=== PATIENT | female | born 1935 | race Caucasian/White ===

== ENCOUNTER 2018-01-03 05:41 | Outpatient (CLI) | payer MEDICARE, OTHER ==
[~2018-01-03] VITALS: Ht 157.5 cm; Wt 72.7 kg
[~2018-01-03 05:41] MED LIST: BENZ200C25 PO; D3/R1CAP PO; HYAL1CAP PO; HYDR-2890 PO; IRBE300T13 PO; IRBE300T9 PO; KCL20TCR PO; LTN005OP2 OU; NITR1PAT27 SL; OMEG-12 PO; OMEP20TA2 PO; ONDA4TAB8 PO; SENN1TAB76 PO; SIMV20TA3 PO; TELM1TAB2 PO; TELM1TAB3 PO; TML5OP2.5 OP; VIT1CAPS5 PO; WARF2.5T PO
[2018-01-03] MEDS ORDERED: SIMV20TA3 PO (13:57)
[2018-01-03] MEDS ORDERED: OMEP20CA12 PO (13:57)
[2018-01-03] MEDS ORDERED: TELM80TA5 PO (13:57)
[2018-01-03] MEDS ORDERED: SENN-140 PO (14:12)
[2018-01-03] MEDS ORDERED: LATA2.5D5 OP (14:12)
[2018-01-03] MEDS ORDERED: VIT1CAPS5 PO (14:12)
[2018-01-03] MEDS ORDERED: AMLO10TA2 PO (14:12)
[2018-01-03] MEDS ORDERED: OMEG-160 PO (14:12)
[2018-01-03] MEDS ORDERED: LABE100T2 PO (14:15)
== END 2018-01-03 14:22 ==
LOC: PREOP 05:41
PROVIDERS: ATTEND Orthopaedic Surgery
DX: Z01.818 Encounter for other preprocedural examination (principal); M65.341 Trigger finger, right ring finger; M72.0 Palmar fascial fibromatosis [Dupuytren]

== ENCOUNTER 2018-01-10 08:49 | Day surgery (SDC) | payer MEDICARE, OTHER ==
[~2018-01-10] VITALS: Ht 157.5 cm; Wt 72.7 kg
[~2018-01-10 08:49] MED LIST changes: +AMLO10TA2 PO; +LABE100T6 PO; +LATA2.5D5 OP; +OMEG-160 PO; +OMEP20CA12 PO; +SENN-140 PO; +TELM80TA5 PO
--- OUTSIDE RECORDS SUMMARY | 2018-01-10 08:53 | XMS REPORT | Continuity of Care Document ---
Author Author [facility] Organization [facility] Address Unknown Phone Unavailable Allergies Active Description Code Type Severity Reaction Onset Reported/Identified Relationship to Patient Clinical Status Yes Penicillins [id number] Drug Allergy Unknown N/A 01/03/2018 Yes Sulfa (Sulfonamide Antibiotics) [id number] Drug Allergy Unknown N/A 2017 Medications There is no data. 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 03/16/2011 Ot 535.40 OTH SPECIFIED GASTRITIS,W/O MENTION OF H 03/16/2011 Ot 553.3 DIAPHRAGMATIC HERNIA 11/15/2012 Ot 272.4 HYPERLIPIDEMIA NEC/NOS 11/15/2012 Ot 362.50 MACULAR DEGENERATION NOS 11/15/2012 Ot 401.9 HYPERTENSION NOS 11/15/2012 Ot 786.59 CHEST PAIN NEC 11/15/2012 Ot V17.3 FAM HX- ISCHEM HEART DIS 11/25/2012 Ot 459.89 CIRCULATORY DISEASE NEC 11/25/2012 Ot V45.89 POSTSURGICAL STATES NEC 02/14/2014 MARY CALLEJAS DO Ot 715.31 LOC OSTEOARTH NOS-SHLDER 02/14/2014 MARY CALLEJAS DO Ot 726.10 BURSAE TENDONS DIS SHLDER NOS 05/23/2014 MARY CALLEJAS DO Ot V43.61 SHOULDER JOINT REPLACEMENT STATUS 05/23/2014 MARY CALLEJAS DO Ot V54.81 AFTERCARE FOLLOWING JOINT REPLACEMENT 05/23/2014 MARY CALLEJAS DO Ot V57.1 PHYSICAL THERAPY NEC 07/29/2015 Ot 793.80 07/29/2015 Ot 611.89 07/29/2015 Ot V67.9 07/29/2015 Ot 789.01 07/29/2015 Ot 787.02 07/29/2015 Ot 789.06 07/29/2015 Ot V76.12 07/29/2015 Ot 786.2 07/29/2015 TRACIE WALTERS MD Ot V76.12 07/29/2015 BRITTA DO, MARY Barros Ot 715.31 07/29/2015 BRITTA DO, MARY Barros Ot V72.63 07/29/2015 BRITTA DO, MARY Barros Ot V72.81 07/29/2015 BRITTA DO, MARY Barros Ot V72.83 07/29/2015 BRITTA DO, MARY Barros Ot V72.84 07/29/2015 BRITTA DO, MARY Barros Ot V74.8 07/29/2015 BRITTA DO, MARY Barros Ot 276.8 07/29/2015 BRITTA DO, MARY Barros Ot V43.61 07/30/2015 BRITTA DO, MARY Barros Ot M25.512 07/30/2015 BRITTA DO, MARY Barros Ot Z98.89 08/19/2015 Ot 793.80 08/19/2015 Ot 611.89 08/19/2015 Ot V67.9 08/19/2015 Ot 789.01 08/19/2015 Ot 787.02 08/19/2015 Ot 789.06 08/19/2015 Ot V76.12 08/19/2015 Ot 786.2 08/19/2015 TRACIE WALTERS MD Ot V76.12 08/19/2015 BRITTA DO, MARY Barros Ot 715.31 08/19/2015 BRITTA DO, MARY Barros Ot V72.63 08/19/2015 BRITTA DO, MARY Barros Ot V72.81 08/19/2015 BRITTA DO, MARY Barros Ot V72.83 08/19/2015 BRITTA DO, MARY Barros Ot V72.84 08/19/2015 BRITTA DO, MARY Barros Ot V74.8 08/19/2015 BRITTA DO, MARY Barros Ot 276.8 08/19/2015 BRITTA DO, MARY Barros Ot V43.61 08/19/2015 BRITTA DO, MARY Barros Ot M25.512 08/19/2015 BRITTA DOMARY Ot Z98.89 08/19/2015 Ot 793.80 08/19/2015 Ot 611.89 08/19/2015 Ot V67.9 08/19/2015 Ot 789.01 08/19/2015 Ot 787.02 08/19/2015 Ot 789.06 08/19/2015 Ot V76.12 08/19/2015 Ot 786.2 08/19/2015 TRACIE WALTERS MD Ot V76.12 08/19/2015 BRITTA DO, MARY Barros Ot 715.31 08/19/2015 BRITTA DO, MARY Barros Ot V72.63 08/19/2015 BRITTA DO, MARY Barros Ot V72.81 08/19/2015 BRITTA DO, MARY Barros Ot V72.83 08/19/2015 BRITTA DO, MARY Barros Ot V72.84 08/19/2015 BRITTA DO, MARY Barros Ot V74.8 08/19/2015 BRITTA DO, MARY Barros Ot 276.8 08/19/2015 BRITTA DO, MARY Barros Ot V43.61 08/19/2015 BRITTA DO, MARY Barros Ot M25.512 08/19/2015 BRITTA DO, MARY Barros Ot Z98.89 08/25/2015 BRITTA DO, MARY Barros Ot M25.512 08/25/2015 BRITTA DO, MARY Barros Ot Z98.89 08/27/2015 BRITTA DO, MARY Barros Ot M25.512 08/27/2015 BRITTA DO, MARY Barros Ot Z98.89 09/16/2015 SELENA BOSTON, TRACIE Pittman Ot Z12.31 03/05/2016 Ot 611.89 OTHER SPECIFIED DISORDERS OF BREAST 03/05/2016 Ot V67.9 FOLLOW-UP EXAM NOS 03/05/2016 Ot 789.01 ABDOMINAL PAIN, RIGHT UPPER QUADRANT 03/05/2016 Ot 787.02 NAUSEA ALONE 03/05/2016 Ot 789.06 ABDOMINAL PAIN, EPIGASTRIC 03/05/2016 Ot V76.12 OTH SCREEN MAMMO-MALIGN NEOPLASM OF ERA 03/05/2016 Ot 786.2 COUGH 03/05/2016 TRACIE WALTERS MD Ot V76.12 OTH SCREEN MAMMO-MALIGN NEOPLASM OF ERA 03/05/2016 BRITTA DO, MARY Barros Ot 715.31 LOC OSTEOARTH NOS-SHLDER 03/05/2016 BRITTA , MARY Barros Ot V72.63 PRE-PROCEDURAL LABORATORY EXAMINATION 03/05/2016 BRITTA , MARY Barros Ot V72.81 [id number] CARDIOVASCULAR 03/05/2016 BRITTA DO, MARY Barros Ot V72.83 EXAM PRE-OPERATIVE NEC 03/05/2016 MARY CALLEJAS DO Ot V72.84 EXAM PRE-OPERATIVE NOS 03/05/2016 MARY CALLEJAS DO Ot V74.8 SCREEN-BACTERIAL DIS NEC 03/05/2016 MARY CALLEJAS DO Ot 276.8 HYPOPOTASSEMIA 03/05/2016 MARY CALLEJAS DO Ot V43.61 SHOULDER JOINT REPLACEMENT STATUS 03/05/2016 MARY CALLEJAS DO Ot M25.512 PAIN IN LEFT SHOULDER 03/05/2016 MARY CALLEJAS DO Ot Z98.89 OTHER SPECIFIED POSTPROCEDURAL STATES 03/05/2016 SELENA BOSTON, TRACIE Pittman Ot Z12.31 ENCNTR SCREEN MAMMOGRAM FOR MALIGNANT NE 03/05/2016 Ot 611.89 OTHER SPECIFIED DISORDERS OF BREAST 03/05/2016 Ot V67.9 FOLLOW-UP EXAM NOS 03/05/2016 Ot 789.01 ABDOMINAL PAIN, RIGHT UPPER QUADRANT 03/05/2016 Ot 787.02 NAUSEA ALONE 03/05/2016 Ot 789.06 ABDOMINAL PAIN, EPIGASTRIC 03/05/2016 Ot V76.12 OTH SCREEN MAMMO-MALIGN NEOPLASM OF ERA 03/05/2016 Ot 786.2 COUGH 03/05/2016 SELENA BOSTON, TRACIE Pittman Ot V76.12 OTH SCREEN MAMMO-MALIGN NEOPLASM OF ERA 03/05/2016 MARY CALLEJAS DO Ot 715.31 LOC OSTEOARTH NOS-SHLDER 03/05/2016 MARY CALLEJAS DO Ot V72.63 PRE-PROCEDURAL LABORATORY EXAMINATION 03/05/2016 MARY CALLEJAS DO Ot V72.81 QAFZ-[id number] CARDIOVASCULAR 03/05/2016 BRITTA CHANEL MARY Barros Ot V72.83 EXAM PRE-OPERATIVE NEC 03/05/2016 MARY CALLEJAS DO Ot V72.84 EXAM PRE-OPERATIVE NOS 03/05/2016 MARY CALLEJAS DO Ot V74.8 SCREEN-BACTERIAL DIS NEC 03/05/2016 MARY CALLEJAS DO Ot 276.8 HYPOPOTASSEMIA 03/05/2016 MARY CALLEJAS DO Ot V43.61 SHOULDER JOINT REPLACEMENT STATUS 03/05/2016 MARY CALLEJAS DO Ot M25.512 PAIN IN LEFT SHOULDER 03/05/2016 MARY CALLEJAS DO Ot Z98.89 OTHER SPECIFIED POSTPROCEDURAL STATES 03/05/2016 SELENA BOSTON, TRACIE Pittman Ot Z12.31 ENCNTR SCREEN MAMMOGRAM FOR MALIGNANT NE 03/05/2016 Ot 611.89 OTHER SPECIFIED DISORDERS OF BREAST 03/05/2016 Ot V67.9 FOLLOW-UP EXAM NOS 03/05/2016 Ot 789.01 ABDOMINAL PAIN, RIGHT UPPER QUADRANT 03/05/2016 Ot 787.02 NAUSEA ALONE 03/05/2016 Ot 789.06 ABDOMINAL PAIN, EPIGASTRIC 03/05/2016 Ot V76.12 OTH SCREEN MAMMO-MALIGN NEOPLASM OF ERA 03/05/2016 Ot 786.2 COUGH 03/05/2016 TRACIE WALTERS MD Ot V76.12 OTH SCREEN MAMMO-MALIGN NEOPLASM OF ERA 03/05/2016 BRITTA CHANEL MARY Barros Ot 715.31 LOC OSTEOARTH NOS-SHLDER 03/05/2016 BRITTA CHANEL MARY Barros Ot V72.63 PRE-PROCEDURAL LABORATORY EXAMINATION 03/05/2016 BRITTA CHANEL MARY Barros Ot V72.81 [id number] CARDIOVASCULAR 03/05/2016 BRITTA CHANEL MARY Barros Ot V72.83 EXAM PRE-OPERATIVE NEC 03/05/2016 BRITTA CHANEL MARY Barros Ot V72.84 EXAM PRE-OPERATIVE NOS 03/05/2016 BRITTA CHANEL MARY Barros Ot V74.8 SCREEN-BACTERIAL DIS NEC 03/05/2016 BRITTA CHANEL MARY Barros Ot 276.8 HYPOPOTASSEMIA 03/05/2016 BRITTA CHANEL MARY Barros Ot V43.61 SHOULDER JOINT REPLACEMENT STATUS 03/05/2016 BRITTA CHANEL MARY Barros Ot M25.512 PAIN IN LEFT SHOULDER 03/05/2016 BRITTA CHANEL MARY Barros Ot Z98.89 OTHER SPECIFIED POSTPROCEDURAL STATES 03/05/2016 SELENA BOSTON, TRACIE Pittman Ot Z12.31 ENCNTR SCREEN MAMMOGRAM FOR MALIGNANT NE 03/05/2016 ABHINAV OROPEZA Ot 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 03/08/2016 ABHINAV OROPEZA Ot 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 03/25/2016 ABHINAV OROPEZA Ot E78.2 MIXED HYPERLIPIDEMIA 03/25/2016 ABHINAV OROPEZA Ot I10 ESSENTIAL (PRIMARY) HYPERTENSION 03/25/2016 ABHINAV OROPEZA Ot 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 03/25/2016 ABHINAV OROPEZA Ot R06.02 SHORTNESS OF BREATH 04/09/2016 ABHINAV OROPEZA Ot E78.2 MIXED HYPERLIPIDEMIA 04/09/2016 ABHINAV OROPEZA Ot I10 ESSENTIAL (PRIMARY) HYPERTENSION 04/09/2016 ABHINAV OROPEZA Ot 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 04/09/2016 ABHINAV OROPEZA Ot R06.02 SHORTNESS OF BREATH 08/31/2016 Ot 787.02 NAUSEA ALONE 08/31/2016 Ot 789.06 ABDOMINAL PAIN, EPIGASTRIC 08/31/2016 Ot V76.12 OTH SCREEN MAMMO-MALIGN NEOPLASM OF ERA 08/31/2016 Ot 786.2 COUGH 08/31/2016 SELENA BOSTON, TRACIE Pittman Ot V76.12 OTH SCREEN MAMMO-MALIGN NEOPLASM OF ERA 08/31/2016 MARY CALLEJAS DO Ot 715.31 LOC OSTEOARTH NOS-SHLDER 08/31/2016 MARY CALLEJAS DO Ot V72.63 PRE-PROCEDURAL LABORATORY EXAMINATION 08/31/2016 MARY CALLEJAS DO Ot V72.81 [id number] CARDIOVASCULAR 08/31/2016 MARY CALLEJAS DO Ot V72.83 EXAM PRE-OPERATIVE NEC 08/31/2016 MARY CALLEJAS DO Ot V72.84 EXAM PRE-OPERATIVE NOS 08/31/2016 MARY CALLEJAS DO Ot V74.8 SCREEN-BACTERIAL DIS NEC 08/31/2016 MARY CALLEJAS DO Ot 276.8 HYPOPOTASSEMIA 08/31/2016 MARY CALLEJAS DO Ot V43.61 SHOULDER JOINT REPLACEMENT STATUS 08/31/2016 MARY CALLEJAS DO Ot M25.512 PAIN IN LEFT SHOULDER 08/31/2016 MARY CALLEJAS DO Ot Z98.89 OTHER SPECIFIED POSTPROCEDURAL STATES 08/31/2016 TRACIE WALTERS MD Ot Z12.31 ENCNTR SCREEN MAMMOGRAM FOR MALIGNANT NE 08/31/2016 ABHINAV OROPEZA Ot E78.2 MIXED HYPERLIPIDEMIA 08/31/2016 ABHINAV OROPEZA Ot I10 ESSENTIAL (PRIMARY) HYPERTENSION 08/31/2016 ABHINAV OROPEZA Ot 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 08/31/2016 ABHINAV OROPEZA Ot R06.02 SHORTNESS OF BREATH 08/31/2016 SELENA BOSTON, TRACIE Pittman Ot Z12.31 ENCNTR SCREEN MAMMOGRAM FOR MALIGNANT NE 08/31/2016 TRACIE WALTERS MD, Ot Z12.31 ENCNTR SCREEN MAMMOGRAM FOR MALIGNANT NE 08/31/2016 TRACIE WALTERS MD Ot Z12.31 ENCNTR SCREEN MAMMOGRAM FOR MALIGNANT NE 09/01/2016 TRACIE WALTERS MD, Ot Z12.31 ENCNTR SCREEN MAMMOGRAM FOR MALIGNANT NE 09/01/2016 TRACIE WALTERS MD, Ot Z12.31 ENCNTR SCREEN MAMMOGRAM FOR MALIGNANT NE 09/23/2016 TRACIE WALTERS MD, Ot Z12.31 ENCNTR SCREEN MAMMOGRAM FOR MALIGNANT NE 01/03/2018 TRACIE WALTERS MD Ot V76.12 OTH SCREEN MAMMO-MALIGN NEOPLASM OF ERA 01/03/2018 BRITTA CHANEL MARY Fiorella Ot 715.31 LOC OSTEOARTH NOS-SHLDER 01/03/2018 BRITTA CHANEL MARY Barros Ot V72.63 PRE-PROCEDURAL LABORATORY EXAMINATION 01/03/2018 BRITTA CHANEL MARY Barros Ot V72.81 [id number] CARDIOVASCULAR 01/03/2018 BRITTA DO MARY Fiorella Ot V72.83 EXAM PRE-OPERATIVE NEC 01/03/2018 BRITTA CHANEL MARY Fiorella Ot V72.84 EXAM PRE-OPERATIVE NOS 01/03/2018 BRITTA CHANEL MARY Fiorella Ot V74.8 SCREEN-BACTERIAL DIS NEC 01/03/2018 BRITTA DO MARY Barros Ot 276.8 HYPOPOTASSEMIA 01/03/2018 BRITTA CHANEL MARY Barros Ot V43.61 SHOULDER JOINT REPLACEMENT STATUS 01/03/2018 BRITTA CHANEL MARY Fiorella Ot M25.512 PAIN IN LEFT SHOULDER 01/03/2018 BRITTA CHANEL MARY Fiorella Ot Z98.89 OTHER SPECIFIED POSTPROCEDURAL STATES 01/03/2018 TRACIE WALTERS MD Ot Z12.31 ENCNTR SCREEN MAMMOGRAM FOR MALIGNANT NE 01/03/2018 ABHINAV OROPEZA Ot E78.2 MIXED HYPERLIPIDEMIA 01/03/2018 ABHINAV OROPEZA Ot I10 ESSENTIAL (PRIMARY) HYPERTENSION 01/03/2018 ABHINAV OROPEZA Ot 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 01/03/2018 ABHINAV OROPEZA Ot R06.02 SHORTNESS OF BREATH 01/03/2018 SELENA BOSTON, TRACIE Pittman Ot Z12.31 ENCNTR SCREEN MAMMOGRAM FOR MALIGNANT NE 01/04/2018 TRACIE WALTERS MD Ot V76.12 OTH SCREEN MAMMO-MALIGN NEOPLASM OF ERA 01/04/2018 BRITTA DO, MARY Fiorella Ot 715.31 LOC OSTEOARTH NOS-SHLDER 01/04/2018 BRITTA DO MARY Barros Ot V72.63 PRE-PROCEDURAL LABORATORY EXAMINATION 01/04/2018 BRITTA CHANEL MARY Barros Ot V72.81 WINA-[id number] CARDIOVASCULAR 01/04/2018 BRITTA DO MARY Barros Ot V72.83 EXAM PRE-OPERATIVE NEC 01/04/2018 BRITTA DO MARY Barros Ot V72.84 EXAM PRE-OPERATIVE NOS 01/04/2018 BRITTA DO MARY Fiorella Ot V74.8 SCREEN-BACTERIAL DIS NEC 01/04/2018 BRITTA DO, MARY Fiorella Ot 276.8 HYPOPOTASSEMIA 01/04/2018 BRITTA DO MARY Fiorella Ot V43.61 SHOULDER JOINT REPLACEMENT STATUS 01/04/2018 BRITTA CHANEL MARY Fiorella Ot M25.512 PAIN IN LEFT SHOULDER 01/04/2018 BRITTA MARY Fiorella Ot Z98.89 OTHER SPECIFIED POSTPROCEDURAL STATES 01/04/2018 TRACIE WALTERS MD, Ot Z12.31 ENCNTR SCREEN MAMMOGRAM FOR MALIGNANT NE 01/04/2018 ABHINAV OROPEZA Ot E78.2 MIXED HYPERLIPIDEMIA 01/04/2018 ABHINAV OROPEZA Ot I10 ESSENTIAL (PRIMARY) HYPERTENSION 01/04/2018 ABHINAV OROPEZA Ot 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 01/04/2018 ABHINAV OROPEZA Ot R06.02 SHORTNESS OF BREATH 01/04/2018 TRACIE WALTERS MD Ot Z12.31 ENCNTR SCREEN MAMMOGRAM FOR MALIGNANT NE 01/04/2018 BRITTA DO MARY F Ot M65.341 TRIGGER FINGER, RIGHT RING FINGER 01/04/2018 BRITTA CHANELMARY Fiorella Ot 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 Encounters ACCT No. Visit Date/Time Discharge Status Pt. Type Provider Facility Loc./Unit Complaint [id number] 01/03/2018 05:41:00 01/03/2018 14:22:00 DIS Outpatient MARY CALLEJAS DO [facility] PREOP TRIGGER FINGER RT RING, RT HAND DUPYTRENS CONTRACT [id number] 08/31/2016 09:15:00 08/31/2016 23:59:59 CLS Outpatient TRACIE WALTERS MD [facility] RAD SCREENING [id number] 03/05/2016 07:41:00 03/05/2016 23:59:59 CLS Outpatient ABHINAV OROPEZA [facility] CARD CAD,DYSPNEA, HTN [id number] 08/19/2015 11:20:00 08/19/2015 23:59:59 CLS Outpatient TRACIE WALTERS MD [facility] RAD SCREENING [id number] 07/28/2015 13:22:00 07/28/2015 23:59:59 CLS Outpatient MARY CALLEJAS DO [facility] RAD STATUS POST REVERSE SHOULDER, INCREASED PAIN [id number] 05/23/2014 09:44:00 05/23/2014 13:30:00 DIS Outpatient MARY CALLEJAS DO [facility] REHAB LT REVERSE TOTAL SHOULDER [id number] 02/20/2014 12:21:00 02/20/2014 23:59:59 CLS Outpatient MARY CALLEJAS DO [facility] LAB S/P TOTAL [id number] 02/12/2014 05:43:00 02/14/2014 15:20:00 DIS Inpatient MARY CALLEJAS DO [facility] SURGICAL DJD LEFT SHOULDER [id number] 01/29/2014 08:47:00 01/29/2014 23:59:59 CLS Outpatient MARY CALLEJAS DO [facility] PREOP LEFT SHOULDER DJD [id number] 06/13/2013 10:07:00 06/13/2013 23:59:59 CLS Outpatient TRACIE WALTERS MD [facility] RAD SCREENING [id number] 01/10/2018 11:00:00 PEN Preadmit MARY CALLEJAS DO [facility] SDC TRIGGER FINGER RT HAND, RT DUPYTRENS CONTRACTURE [id number] 11/25/2012 12:48:00 Document Registration [id number] 11/14/2012 12:00:00 Document Registration [id number] 05/01/2012 11:52:00 Document Registration [id number] 01/31/2012 08:55:00 Document Registration [id number] 03/18/2011 11:30:00 Document Registration [id number] 03/16/2011 07:30:00 Document Registration [id number] 03/09/2011 07:38:00 Document Registration [id number] 01/20/2011 08:26:00 Document Registration [id number] 06/30/2010 07:27:00 Document Registration [id number] 04/20/2010 12:25:00 Document Registration
[2018-01-10] MEDS ORDERED: LACTATED RINGERS 1,000 ML IV PRN (09:06)
[2018-01-10] MEDS ORDERED: FAMOTIDINE 20MG/2ML IV (PEPCID) IV ONE (09:15)
[2018-01-10 09:30] VITALS: BP 118/69
[2018-01-10] MEDS ORDERED: NEO/POLY/BAC (NEOSPORIN) OINT 15 GM TUBE ONE (09:59)
[2018-01-10] MEDS ORDERED: GENTAMICIN 40 MG/ML 2 ML INJ SDV ONE (09:59)
[2018-01-10] MEDS ORDERED: LIDOCAINE 1% INJ 20 ML 20 ML VIAL ONE (09:59)
[2018-01-10] MEDS ORDERED: LIDOCAINE PF 2% 5 ML (XYLOCAINE) VIAL ONE (10:02)
[2018-01-10] MEDS ORDERED: ONDANSETRON 4 MG/2 ML (SDV) Z0FRAN ONE ×2 (10:02→10:12)
[2018-01-10] MEDS ORDERED: proPOfol 200 MG/20 ML (DIPRIVAN) VIAL IV ONE (10:02)
--- NOTE | 2018-01-10 10:11 | Progress Note-Pre Operative ---
Pre-Operative Progress Note H&P Reviewed The H&P was reviewed, patient examined and no changes noted. Date Seen by Provider: Jan 10, 2018 Time Seen by Provider: 10:00 Date H&P Reviewed: Jan 10, 2018 Time H&P Reviewed: 10:00 Pre-Operative Diagnosis: Dupuytrens contracture right hand, trigger finger right ring finger MARY CALLEJAS DO Jan 10, 2018 10:10 am
[2018-01-10] MEDS ORDERED: TRAM50TA2 PO (10:24)
--- NOTE | 2018-01-10 10:27 | Discharge Inst-Surgical ---
Discharge Inst-Surgical Depart Medication/Instructions New, Converted or Re-Newed RX: RX on Chart Patient Instructions may remove dressing tomorrow and cover incision with bandaid, may gently wash with soap and water, do not submerse. frequent ROM of hand and fingers, no lifting over 2 lbs. may ice 20 minutes every hour for 2 days then ice 3x/day Consults/Follow Up Goal/Follow Up Appt.: f/u 8 days Patient Instructions: No driving on pain meds Activity Activity as Tolerated: No Elevate Extremity: Elevate Above Heart Diet Discharge Diet: No Restrictions Return to The Hospital For: concerns. Call Dr. Callejas's office 1st if possible Symptoms to Report to Physicia: Extremity Discoloration, Fever Over 101 Degrees F MARY CALLEJAS DO Jan 10, 2018 10:27 am
[2018-01-10] MEDS ORDERED: PROPOFOL INJECTION 50 ML IV ONE (10:35)
--- NOTE | 2018-01-10 11:07 | Progress Note-Post Operative ---
Post-Operative Progess Note Surgeon (s)/Target Worker (s) Surgeon MARY CALLEJAS DO Target Worker: Jim Mahoney EDGING CATCHERLinda Pre-Operative Diagnosis Dupuytrens contracture right hand, trigger finger right ring finger Post-Operative Diagnosis same Procedure & Operative Findings Date of Procedure 01/10/18 Procedure Performed/Findings Partial palmar fasciectomy right hand A1 stephanie release right middle finger Anesthesia Type Monitired local Estimated Blood Loss Estimated blood loss (mL): min Specimens/Packing Specimens Removed diseased palmar fascia sent for eval MARY CALLEJAS DO Jan 10, 2018 11:07 am
[2018-01-10] MEDS ORDERED: ONDANSETRON 4 MG/2 ML (SDV) Z0FRAN IVP PRN (11:30)
[2018-01-10 11:45] VITALS: BP 123/55
[2018-01-10 12:15] VITALS: BP 129/51
[2018-01-10 12:50] VITALS: BP 129/51
--- NOTE | 2018-01-10 13:39 | Anesthesia-General Post-Op ---
MAC Patient Condition Mental Status/LOC: Same as Preop Cardiovascular: Satisfactory Nausea/Vomiting: Absent Respiratory: Satisfactory Pain: Controlled Complications: Absent Post Op Complications Complications None Follow Up Care/Instructions Patient Instructions None needed. Anesthesiology Discharge Order Discharge Order Patient was seen after surgery and prior to her discharge to home and she was doing well, no complaints, stable vital signs, no apparent adverse anesthesia problems. RONNI ZIGELER DO Jan 10, 2018 13:39
--- NOTE | 2018-01-11 00:35 | OPERATIVE REPORT ---
DATE OF SERVICE: 01/10/2018 PREOPERATIVE DIAGNOSES: 1. Dupuytren's contracture, right hand. 2. Trigger finger, right ring finger. POSTOPERATIVE DIAGNOSES: 1. Dupuytren's contracture, right hand. 2. Trigger finger, right ring finger. PROCEDURES: 1. Partial palmar fasciectomy, right hand. 2. A1 stephanie release, right ring finger. SURGEON: Tanmay Callejas MD ACCOUNT INSTALLER: GUILLERMO Sow ANESTHESIA: Monitored local. INDICATIONS AND FINDINGS: The patient is an 82-year-old female seen with chief complaint of persistent catching and locking of the right ring finger. The patient had a prominent palpable Dupuytren's cord over the volar surface of the ring finger and into the palmar aspect of the hand. The patient was taken to surgery where the diseased palmar fascia was excised and A1 stephanie release was performed without complication. PROCEDURE IN DETAIL: The patient was taken to the operating room and placed supine upon the operating table and IV sedation was provided. A well-padded pneumatic tourniquet was placed about the upper aspect of the right arm. A ChloraPrep and sterile drape of the right upper extremity was performed. The proposed incision site was then infiltrated with 1% lidocaine without epinephrine. The arm was elevated, exsanguinated and the tourniquet inflated to 250 mmHg pressure. A zigzag incision was then made over the volar surface of the palmar surface of the right hand overlying the distal palmar crease and then palmar aspect and proximal to this. Under loupe magnification visualization, flaps were developed. The skin and subcutaneous tissues were sharply excised from a pretendinous cord that was present in the palmar surface of the hand. This was dissected to the proximal aspect of the hand, I then excised. This excision was carried down to the area of the proximal phalangeal area. The neurovascular bundles were protected throughout the field. The A1 stephanie was identified and this was divided longitudinally under direct visualization. The finger was flexed and extended with no further tethering in the finger after additional hypertrophic synovium was excised from the flexor tendon sheath of the ring finger. Wound was irrigated extensively with normal saline solution. The tourniquet was released. Hemostasis was maintained at the skin edges with electrocautery. The vascular bundles were noted to with no active bleeding. A 4-0 nylon was used to perform Allgower corner sutures and the remainder of the incision were closed simply with interrupted 4-0 nylon suture and Adaptic Neosporin bulky dressing was placed about the right hand with an ulnar gutter splint incorporated within the dressing. The patient was awake and was transferred to postoperative recovery with anesthesia personnel present in satisfactory condition. Job ID: [id number] DocumentID: [id number] Dictated Date: 01/10/2018 23:57:59 Silver Lap Machine Tender Date: 01/11/2018 00:34:59 Dictated By: TANMAY CALLEJAS DO
== END 2018-01-10 12:50 | disposition home or self-care (01) ==
LOC: SDC 08:49
PROVIDERS: ATTEND Orthopaedic Surgery
DX: M72.0 Palmar fascial fibromatosis [Dupuytren] (principal); M65.341 Trigger finger, right ring finger; I10 Essential (primary) hypertension; E78.00 Pure hypercholesterolemia, unspecified; K21.9 Gastro-esophageal reflux disease without esophagitis; Z79.899 Other long term (current) drug therapy
CPT/HCPCS: 87081; 88304

== ENCOUNTER 2018-04-13 08:29 | Outpatient (RCR) | payer MEDICARE, OTHER ==
[~2018-04-13 08:29] MED LIST changes: +TRAM50TA2 PO
== END 2018-04-13 09:18 | disposition home or self-care (01) ==
PROVIDERS: ATTEND Nurse Practitioner Family
DX: M51.36 Other intervertebral disc degeneration, lumbar region (principal); M48.061 Spinal stenosis, lumbar region without neurogenic claudication; M75.101 Unspecified rotator cuff tear or rupture of right shoulder, not specified as traumatic

== ENCOUNTER → 2019-02-01 | Outpatient (CLI) | payer MEDICARE, OTHER ==
[~2019-02-01] MED LIST changes: -AMLO10TA2 PO; +AMLO10TA7 PO; -SENN-140 PO; +SENN-141 PO; -TELM80TA5 PO; +TELM80TA8 PO
== END ==
LOC: CARD 10:03
PROVIDERS: ATTEND Internal Medicine Cardiovascular Disease
DX: I25.10 Atherosclerotic heart disease of native coronary artery without angina pectoris (principal); R07.9 Chest pain, unspecified; R06.09 Other forms of dyspnea; E78.5 Hyperlipidemia, unspecified
CPT/HCPCS: 93306

== ENCOUNTER → 2019-05-24 | Outpatient (CLI) | payer MEDICARE, OTHER ==
[~2019-05-24] MED LIST changes: -OMEP20CA12 PO; +OMEP20CA13 PO
--- NOTE | 2019-05-25 20:26 | Diagnostic Imaging Report ---
EXAMINATION: Digital mammogram bilateral screening. The current study was also evaluated with a Computer Aided Detection (CAD) system. 3-D tomosynthesis was also performed and reviewed. INDICATION: Screening. This study was compared to the prior exams of 01/24/2018, 08/31/2016, and 10/19/2014. At this time, there are no current complaints. FINDINGS: This exam was ordered as a screening mammogram; however, during the course of the study, the patient related that she had a lump in the far upper-outer aspect of the left breast. A marker was placed over the area of concern. In this region, there is a well-circumscribed 7 mm dense nodule. This finding is more prominent than noted on the previous exam of 01/24/2018. I suspect that this is a lymph node or perhaps a sebaceous cyst. Even so, I would recommend that ultrasound be performed to better evaluate this finding. The overall appearance of the breasts has not changed significantly otherwise. The fibroglandular tissue in both breasts is heterogeneously dense. This does limit the sensitivity of this exam. There is no primary or secondary sign of malignancy noted. IMPRESSION: Ultrasound will be recommended for further evaluation of the benign-appearing nodular density in the far upper-outer aspect of the left breast. ACR BI-RADS Category 0: Incomplete. (Needs additional imaging evaluation). Result letter will be mailed to the patient. Note: At least 10% of breast cancer is not imaged by mammography. Dictated by: Dictated on workstation # [id number]
== END ==
LOC: RAD 11:26
PROVIDERS: ATTEND Internal Medicine
DX: Z12.31 Encounter for screening mammogram for malignant neoplasm of breast (principal)
CPT/HCPCS: 77067

== ENCOUNTER 2019-06-06 05:46 | Outpatient (CLI) | payer MEDICARE, OTHER ==
[~2019-06-06] VITALS: Ht 157.5 cm; Wt 77.1 kg
[2019-06-06] MEDS ORDERED: LABE200T7 PO (11:16)
== END 2019-06-06 11:19 | disposition home or self-care (01) ==
LOC: PREOP 05:46
PROVIDERS: ATTEND Internal Medicine
DX: Z01.818 Encounter for other preprocedural examination (principal)

== ENCOUNTER 2019-06-08 07:46 | Day surgery (SDC) | payer MEDICARE, OTHER ==
--- NOTE | 2019-06-01 18:58 | HISTORY AND PHYSICAL ---
DATE OF SERVICE: EGD History and Physical HISTORY OF PRESENT ILLNESS: The patient is an 84-year-old white female, who reported a several week history of intermittent dysphagia to solids. She had noted several black stools as well. She denied abdominal pain and had no past history of peptic ulcer disease. She had an unremarkable colonoscopy in 2009 and had not recommended further screening procedures. She had no weight loss. PHYSICAL EXAMINATION: GENERAL: Revealed a white female, who did not appear to be in acute distress. She had no evidence for pallor. VITAL SIGNS: Blood pressure 120/74. CHEST: Clear. CARDIOVASCULAR: Regular rate and rhythm without murmur, S3 or S4. ABDOMEN: Soft, supple without mass, organomegaly or tenderness. EXTREMITIES: Reveal no cyanosis, clubbing or edema. Following that visit, stool for IFOB was obtained and was positive. ASSESSMENT: For evaluation of occult positive blood in the stool, possible melena and dysphagia, she is being set up for an EGD evaluation on 06/08/2019. She is to avoid nonsteroidal and anti-inflammatory medications. An earlier date was offered, but she wished to put it off until the . At the time of the procedure while in the hospital, we will likely obtain a CBC. If she is feeling weak with further melena, she is to go to the emergency room for more urgent evaluation. Job ID: [id number] DocumentID: [id number] Dictated Date: 05/30/2019 15:55:30 Market Basket Maker Date: 05/30/2019 16:08:58 Dictated By: TRACIE WALTERS MD
[2019-06-08] VITALS (13 sets, daily range): BP systolic 109–174; BP diastolic 57–92
[~2019-06-08] VITALS: Ht 157.5 cm; Wt 77.1 kg
[~2019-06-08 07:46] MED LIST changes: +LABE200T7 PO
[2019-06-08] MEDS ORDERED: D5 LR IV SOLUTION 1,000 ML IV STA (07:55)
[2019-06-08] MEDS ORDERED: HURRICAINE EXT TUBE (BENZOCAINE) XX PRN (08:00)
[2019-06-08] MEDS ORDERED: LIDOCAINE JELLY 2% 6 ML SYRINGE MM PRN (08:00)
[2019-06-08] MEDS ORDERED: fentaNYL INJECTION 100 MCG/2 ML AMP IVP ONE (08:00)
[2019-06-08] MEDS ORDERED: MIDAZOLAM 2 MG/2 ML (VERSED) VIAL IVP ONE (08:00)
[2019-06-08] MEDS ORDERED: fentaNYL INJECTION 100 MCG/2 ML AMP ONE (08:34)
[2019-06-08] MEDS ORDERED: MIDAZOLAM 2 MG/2 ML (VERSED) VIAL ONE ×2 (08:34→08:55)
[2019-06-08] MEDS ORDERED: HURRICAINE EXT TUBE (BENZOCAINE) ONE (08:35)
[2019-06-08] MEDS ORDERED: LIDOCAINE JELLY 2% 6 ML SYRINGE ONE (08:35)
[2019-06-08 11:05] LABS: BASOPHILS # (AUTO) 0.1 10^3/uL (0.0-0.1); BASOPHILS % (AUTO) 1 % (0-10); EOSINOPHILS # (AUTO) 0.2 10^3/uL (0.0-0.3); EOSINOPHILS % (AUTO) 2 % (0-10); HEMATOCRIT 42 % (35-52); HEMOGLOBIN 13.9 G/DL (11.5-16.0); LYMPHOCYTES # (AUTO) 2.6 X 10^3 (1.0-4.0); LYMPHOCYTES % (AUTO) 30 % (12-44); MEAN CORPUSCULAR HEMOGLOBIN 30 PG (25-34); MEAN CORPUSCULAR HGB CONC 33 G/DL (32-36); MEAN CORPUSCULAR VOLUME 91 FL (80-99); MONOCYTES # (AUTO) 1.1 X 10^3 (0.0-1.0); MONOCYTES % (AUTO) 13 % (0-12); NEUTROPHILS # (AUTO) 4.8 X 10^3 (1.8-7.8); NEUTROPHILS % (AUTO) 55 % (42-75); PLATELET COUNT 198 10^3/uL (130-400); RED CELL DISTRIBUTION WIDTH 14.2 % (10.0-14.5); WHITE BLOOD COUNT 8.8 10^3/uL (4.3-11.0)
--- NOTE | 2019-06-08 19:56 | OPERATIVE REPORT ---
DATE OF SERVICE: 06/08/2019 EGD SUMMARY PRIMARY CARE PROVIDER: Tracie Walters MD INDICATION FOR THE PROCEDURE: Occult positive blood in the stool with history of melena. DESCRIPTION OF PROCEDURE: The patient was placed in the left lateral decubitus position. The endoscope was inserted in the oral cavity and under direct visualization, esophagus was intubated. The endoscope was passed down the esophagus through the stomach and the second portion of the duodenum. A careful inspection was made as the endoscope was withdrawn. The patient tolerated the procedure well. FINDINGS: The proximal and mid esophagus were unremarkable. The patient is of short stature. The GE junction revealed some mild erythema without evidence for erosive esophagitis. There was evidence for a small sliding hiatal hernia. The Z-line was noted at 32 cm from the incisoral orifice. There was one small erosion noted on a fundal fold. There was no evidence for ulceration. No blood was noted in the upper GI tract. A biopsy was obtained and submitted for histopathology. Some patchy areas of erythema were noted in the antrum of the stomach. A biopsy was obtained and submitted for Helicobacter. No evidence for ulceration was noted. The pylorus, pyloric channel, the duodenal bulb and second portion of the duodenum were unremarkable. ASSESSMENT: 1. Moderate size hiatal hernia is present without evidence for erosive esophagitis. 2. One focal erosion was noted on the antral fold, biopsy pending. No evidence for ulceration. No blood noted in the upper GI tract. Patchy erythema was noted in the antrum of the stomach. Biopsies are pending for histopathology and Helicobacter evaluation. I advised the patient continue proton pump inhibitor therapy and avoiding aspirin and nonsteroidal medication. Job ID: [id number] DocumentID: [id number] Dictated Date: 06/08/2019 11:00:17 Suction Plate Roller Hand Date: 06/08/2019 19:56:13 Dictated By: TRACIE WALTERS MD
--- NOTE | 2019-06-09 03:00 | OPERATIVE REPORT ---
DATE OF SERVICE: ADDENDUM EGD Following the procedure, the patient states that over at least the past several months, she has noted increased dyspnea on exertion, especially activities like sweeping where she is using her arms and her legs. She denies chest pain and denies orthopnea, PND or pedal edema. She has had no diaphoresis and denies arm or back discomfort with activity. She does have a history of hypertension. She has no known history of coronary artery disease. PHYSICAL EXAMINATION: VITAL SIGNS: Her O2 saturations were normal prior to oxygen in the mid upper 90[address] after sedation with Versed and 2 liters with no arrhythmias being noted and stable vital signs. NECK: Revealed no JVD, adenopathy or bruits. CHEST: Clear to auscultation. CV: Revealed a regular rate and rhythm without murmur, S3 or S4. EXTREMITIES: Reveal no cyanosis, clubbing or edema. ASSESSMENT AND PLAN: Dyspnea on exertion. Considering that she has had some melena, we did obtain a CBC pending at the time of this dictation, make sure that the anemia is not contributing. She is told to call the office and come in next week and we will do a walking oxygen saturation test if there is no evidence for significant anemia with further evaluation for dyspnea on exertion. Job ID: [id number] DocumentID: [id number] Dictated Date: 06/08/2019 16:40:10 Clinical Data Abstractor Date: 06/09/2019 02:59:52 Dictated By: TRACIE WALTERS MD
== END 2019-06-08 11:00 | disposition home or self-care (01) ==
LOC: ENDO 07:46
PROVIDERS: ATTEND Internal Medicine
DX: K92.1 Melena (principal); K44.9 Diaphragmatic hernia without obstruction or gangrene
CPT/HCPCS: 36415; 85025; 88305

== ENCOUNTER → 2019-06-11 | Outpatient (CLI) | payer MEDICARE, OTHER ==
--- NOTE | 2019-06-11 09:38 | Diagnostic Imaging Report ---
INDICATION: Abnormal mammogram and palpable lump in the upper-outer left breast. This study is performed for further evaluation. COMPARISON: Correlation is made with the screening mammogram from 05/24/2019. FINDINGS: Sonographic interrogation of the upper outer left breast at the area of palpable abnormality was performed. This corresponds to the 2 o'clock location approximately 16 cm from the nipple. There is a hypoechoic circumscribed mass just below the skin surface measuring 0.7 x 0.7 x 0.7 cm. This demonstrate posterior acoustic enhancement. No internal vascularity is seen. IMPRESSION: Probable sebaceous cyst at the 2 o'clock location of the left breast 16 cm from the nipple corresponding with the mammographic and palpable abnormality. The patient may return to routine annual screening mammography. ACR BI-RADS Category 2: Benign findings. Dictated by: Dictated on workstation # [id number]
== END ==
LOC: RAD 09:01
PROVIDERS: ATTEND Internal Medicine
DX: N63.21 Unspecified lump in the left breast, upper outer quadrant (principal); R92.8 Other abnormal and inconclusive findings on diagnostic imaging of breast
CPT/HCPCS: 76642

== ENCOUNTER → 2019-07-11 | Outpatient (CLI) | payer MEDICARE, OTHER ==
[~2019-07-11] MED LIST changes: +RT-ALBUTEROL SULF 2.5 MG/3 ML PRE-MIX VIAL INH ONE
== END ==
LOC: RT 08:04
PROVIDERS: ATTEND Internal Medicine
DX: R06.09 Other forms of dyspnea (principal)
CPT/HCPCS: 94060; 94726; 94729

== ENCOUNTER 2021-06-24 05:37 | Outpatient (CLI) | payer MEDICARE, OTHER ==
[~2021-06-24] VITALS: Ht 157.5 cm; Wt 75.0 kg
[~2021-06-24 05:37] MED LIST changes: +AMLO-251 PO; -AMLO10TA7 PO; -OMEP20CA13 PO; +OMEP20CA18 PO; -RT-ALBUTEROL SULF 2.5 MG/3 ML PRE-MIX VIAL INH ONE; -SENN-141 PO; +SENN-234 PO; +SIMV20TA26 PO; -TRAM50TA2 PO; +TRM50T PO
[2021-06-24] MEDS ORDERED: CYAN1TAB68 PO (13:49)
== END 2021-06-24 14:01 ==
LOC: PREOP 05:37
PROVIDERS: ATTEND Surgery
DX: Z01.818 Encounter for other preprocedural examination (principal)

== ENCOUNTER 2021-07-01 08:07 | Day surgery (SDC) | payer MEDICARE, OTHER ==
[~2021-07-01] VITALS: Ht 157.5 cm; Wt 75.0 kg
[~2021-07-01 08:07] MED LIST changes: +CYAN1TAB68 PO
[2021-07-01 08:15] VITALS: BP 132/66
[2021-07-01] MEDS ORDERED: CLINDAMYCIN 600 MG/50 ML IVPB 50 ML IV ONE ×2 (08:25→08:30)
[2021-07-01] MEDS ORDERED: FAMOTIDINE 20MG/2ML IV (PEPCID) IV ONE (08:30)
[2021-07-01] MEDS ORDERED: ONDANSETRON 4 MG/2 ML (SDV) Z0FRAN IV ONE (08:30)
[2021-07-01] MEDS ORDERED: LACTATED RINGERS 1,000 ML IV PRN (08:30)
--- NOTE | 2021-07-01 10:20 | Progress Note-Pre Operative ---
Pre-Operative Progress Note H&P Reviewed The H&P was reviewed, patient examined and no changes noted. Time Seen by Provider: 09:21 Date H&P Reviewed: Jul 01, 2021 Time H&P Reviewed: 09:21 Pre-Operative Diagnosis: Left leg mass, site marked ISA VIVAR DO Jul 01, 2021 10:20
[2021-07-01] MEDS ORDERED: LIDOCAINE/EPI 1%-1:100,000 (XYLOCAINE) 20ML ONE (10:24)
[2021-07-01] MEDS ORDERED: PROPOFOL INJECTION 50 ML IV ONE (10:26)
--- NOTE | 2021-07-01 11:02 | Progress Note-Post Operative ---
Post-Operative Progess Note Surgeon (s)/Small Business Director (s) Surgeon ISA VIVAR DO Small Business Director: DIRK Garcia Pre-Operative Diagnosis Left leg mass, site marked Post-Operative Diagnosis same pending path Procedure & Operative Findings Date of Procedure 07/01/21 Procedure Performed/Findings Exc of left leg mass, 2x6cm Anesthesia Type MAC Estimated Blood Loss Estimated blood loss (mL): scant Specimens/Packing Specimens Removed left leg mass ISA VIVAR DO Jul 01, 2021 11:02
--- NOTE | 2021-07-01 11:04 | Discharge Inst-Surgical ---
Discharge Inst-Surgical Depart Medication/Instructions New, Converted or Re-Newed RX: Other (use home ibuprofen or tylenol) Patient Instructions Follow up Appt: Make appointment for 1 week. [phone] Instructions: No lifting greater than 20 pounds. No strenuous activity. May shower in 24 hours, no tub bath or soaking. Use incentive spirometer at home as directed. No Smoking Skin/Wound Care: May remove bandages in am. You need to leave the sutures in place and come into the office to have them removed. Symptoms to Report: Appetite Changes, Extremity Discoloration, Numbness/Tingling, Swelling Increased, Bleeding Excessive, Eyesight Changes, Pain Increased, Urine Color Change, Constipation(Persistent), Fever over 101 degree F, Pain/Pressure in chest, Urinating Difficulty, Cough Up/Vomit Blood, Heart Beat Irreg/Pounding, Pain/Pressure in jaw, Cramps in feet or legs, Lightheadedness, Pain/Pressure in shoulder, Diarrhea(Persistent), Memory Changes Suddenly, Questions/Concerns, Weight gain consecutive days, Dizziness/Fainting, Nausea/Vomiting, Shortness of Breath, Weight gain over 2 pounds If questions or concerns contact your physician Or seek help at emergency department. Activity Activity as Tolerated: Yes Activity Instructions: Avoid Pulling & Pushing Driving Instructions: You May Drive Diet Discharge Diet: No Restrictions Diet After 24 Hours: Clear Liquid if Nauseous If Any Problems/Questions/Issu: Contact Your Physician, Go to Emergency Room Skin/Wound Care Infection Signs and Symptoms: Increased Redness, Foul Odor of Wound, Increased Drainage, Skin Itchy or Has a Rash, Increased Swelling, Temperature Above 101 F Bathing Instructions: Shower Stitches/Stites/Dermabond Dis: Care of Stitches ISA VIVAR DO Jul 01, 2021 11:04
[2021-07-01 11:10] VITALS: BP 115/61
[2021-07-01] MEDS ORDERED: morphine INJ 10 MG/ML 1ML (SYR OR VIAL) IVP ONE (11:15)
[2021-07-01] MEDS ORDERED: fentaNYL INJ 100 MCG/2 ML AMP IVP ONE (11:15)
[2021-07-01] MEDS ORDERED: MEPERIDINE (DEMEROL) INJ 50 MG/ML IVP ONE (11:15)
[2021-07-01] MEDS ORDERED: ONDANSETRON 4 MG/2 ML (SDV) Z0FRAN IVP PRN (11:15)
[2021-07-01 11:20] VITALS: BP 118/69
[2021-07-01 11:30] VITALS: BP_SYST 118; BP_SYST 132; BP_DIAS 59; BP_DIAS 69
[2021-07-01 12:00] VITALS: BP 139/63
[2021-07-01 12:45] VITALS: BP 139/63
--- NOTE | 2021-07-01 23:29 | OPERATIVE REPORT ---
DATE OF SERVICE: 07/01/2021 PREOPERATIVE DIAGNOSIS: Left leg mass. POSTOPERATIVE DIAGNOSIS: Left leg mass, pending pathology. PROCEDURE: Excision of left leg mass 2 cm x 6 cm elliptical incision. SURGEON: Sivakumar Liang DO [employer] DEVELOPER: Nigel Dumont MS3. ANESTHESIA: MAC. SPECIMEN: Left leg mass. BLOOD LOSS: Scant. FLUIDS: Per anesthesia. POSTOPERATIVE CONDITION: Stable. INDICATION FOR PROCEDURE: The patient is an 86-year-old female who has a mass on the left leg. It has been growing, looks like it could be a malignant process needs to get this removed. FINDINGS: The patient had a mass measured about 1.5 to 1.6 cm left lower leg, removed with a 2 x 6 cm elliptical incision. PROCEDURE NOTE: After informed consent was obtained, the patient was brought to the operating room, placed on the operating table in supine position. She was sterilely prepped and draped in normal fashion. Local lidocaine was used to infiltrate the skin around this mass. Planned elliptical incision to get at least 2 mm margins on each side and then widened long enough to be able to closing a straight line. This measured 2 x 6 cm. Then after infiltrating local, made an incision with #15 blade, carried down through the skin into the subcutaneous tissue, then deepened down through subcutaneous tissue with Bovie electrocautery, going down under this mass, removed en bloc marking it once superiorly with a short stitch, long lateral stitch, passed off table then had to undermine the skin to be able to bring it together, undermined the skin with Bovie electrocautery and about a centimeter on the medial and lateral directions and set both two underscore undermined both sides. Then elected to close the incision, closed with 3-0 nylon 5 vertical mattress suture and then four simple interrupted suture. Area was cleaned and dried, dressing placed. The patient tolerated the procedure. She was transferred to recovery room in stable condition. Sponge, instrument and needle count correct at the end of the case. Job ID: [id number] DocumentID: [id number] Dictated Date: 07/01/2021 16:50:50 Digital Solutions Architect Date: 07/01/2021 23:28:40 Dictated By: SIVAKUMAR LIANG DO
== END 2021-07-01 12:45 | disposition home or self-care (01) ==
LOC: SDC 08:07
PROVIDERS: ATTEND Surgery
DX: C44.729 Squamous cell carcinoma of skin of left lower limb, including hip (principal); K21.9 Gastro-esophageal reflux disease without esophagitis; I10 Essential (primary) hypertension; E78.00 Pure hypercholesterolemia, unspecified; H35.30 Unspecified macular degeneration; Z79.899 Other long term (current) drug therapy
CPT/HCPCS: 87081; 88305

== ENCOUNTER → 2022-05-19 | Outpatient (CLI) | payer MEDICARE, OTHER ==
[~2022-05-19] VITALS: Ht 157 cm; Wt 75.0 kg
[~2022-05-19] MED LIST changes: +CATHETER FLUSH 10 ML SYR IVP PRN; +REGADENOSON 0.4 MG/5 ML SYR (LEXISCAN) IV ONE
[2022-05-19 13:13] VITALS: BP 140/80
--- NOTE | 2022-05-20 07:08 | Cardiology Stress Test Report ---
Stress Test Report Date of Procedure/Referring: Date of Procedure: May 19, 2022 PCP Tracie Walters MD Admitting Physician Admitting Physician: Attending Physician: Sharron Mejia Indications: HTN Baseline Heart Rate: 64 Baseline Blood Pressure: Blood Pressure Systolic: 140 Blood Pressure Diastolic: 80 Baseline Vitals Vital Signs Date Time Temp Pulse Resp B/P (MAP) Pulse Ox O2 Delivery O2 Flow Rate FiO2 05/19/22 13:13 64 140/80 (100) 98 Baseline EKG: Baseline EKG: RBBB Summary After explaining the procedure to the patient, she signed a consent and then brought to the stress nuclear laboratory. Patient received 0.4 mg Lexiscan for stress test, ECG, heart rate and blood pressure were monitored continuously. Resting and stress dose of radio tracer were injected, imaging was acquired and reviewed in short axis, horizontal long axis and vertical long axis views. TID: 1.11 SSS: 7 SDS: 5 EF: 70 1. Patient tolerated Lexiscan well 2. Baseline right bundle branch block persisted during test 3. Breast attenuation with reversible ischemia involving the mid anterior wall and mid to apical anterior lateral wall 4. Normal left ventricular size, ejection fraction 70% Copy Copies To 1: TRACIE WALTERS MD, BASHAR J MD May 20, 2022 07:08
== END ==
LOC: CARD 10:17
PROVIDERS: ATTEND Physician Assistant
DX: I11.9 Hypertensive heart disease without heart failure (principal); I35.8 Other nonrheumatic aortic valve disorders; I25.10 Atherosclerotic heart disease of native coronary artery without angina pectoris
CPT/HCPCS: 78452; 93017; 93306; A9502